=== PATIENT | male | born 1970 | race Caucasian/White ===

== ENCOUNTER 2020-04-23 07:18 | Inpatient (IN) | payer MEDICAID ==
[~2020-04-23] VITALS: Ht 170.2 cm; Wt 63.0 kg
--- NOTE | 2020-04-23 07:20 | NUR ---
PT ALEXANDRA FROM [facility] TO ER BED 07 C/O RLE BLEEDING FISTULA SINCE HIS LAST DIALYSIS 2 DAYS AGO. C/O GENERALIZED WEAKNESS AND BODYACHES. HYPOTENSIVE SPORTS UMPIRE. PLACED ON MONITOR. AWAITING MD PACE.
--- NOTE | 2020-04-23 07:28 | NUR ---
DR ZARAGOZA AT BEDSIDE FOR EVAL.
[2020-04-23] MEDS ORDERED: GELATIN SPONGE,ABSORBABLE 1 SPONGE SPONGE TP ONE (07:37)
[2020-04-23 08:13] LABS: BASOPHILS # (AUTO) 0.1 /CMM (0.0-0.2); HEMATOCRIT 29 % (39-51); HEMOGLOBIN 9.4 g/dL (13.5-17.5); LYMPHOCYTES # (AUTO) 1.7 /CMM (0.8-4.8); MEAN CORPUSCULAR HGB CONC 33 g/dl (31.0-36.0); MEAN CORPUSCULAR VOLUME 90 fL (80-96); MONOCYTES # (AUTO) 0.6 /CMM (0.1-1.30); MONOCYTES % (AUTO) 7.5 % (2.0-12.0); NEUTROPHILS # (AUTO) 5.5 /CMM (1.8-8.9); NEUTROPHILS % (AUTO) 67.5 % (43.0-81.0); PLATELET COUNT (AUTO) 175 /CMM (150-450); RED BLOOD CELL COUNT(AUTO) 3.19 MIL/uL (4.5-6.0); WHITE BLOOD COUNT (AUTO) 8.2 K/uL (4.3-11.0)
[2020-04-23 08:24] LABS: ALBUMIN 2.4 g/dL (3.4-5.0); BILIRUBIN,DIRECT 0.2 mg/dL (0.0-0.2); BILIRUBIN,TOTAL 0.6 mg/dL (0.2-1.0); CALCIUM, SERUM 11.3 mg/dL (8.5-10.1); POTASSIUM 4.9 mmol/L (3.5-5.1); TOTAL PROTEIN, SERUM 6.1 g/dL (6.4-8.2)
--- NOTE | 2020-04-23 08:25 | NUR ---
DR ZARAGOZA MADE AWARE OF LATEST B/P. ORDERS RECIEVED WILL CARRY OUT.
[2020-04-23 08:26] LABS: CREATININE 9.4 mg/dL (0.6-1.3)
[2020-04-23] MEDS ORDERED: IV NS 0.9% 250 ML BAG IV ONE (08:30)
[2020-04-23] MEDS ORDERED: IPRA3AMP23 IH (08:47)
[2020-04-23] MEDS ORDERED: AMIN30LI2 PO (08:47)
[2020-04-23] MEDS ORDERED: ACET325T53 PO (08:47)
[2020-04-23] MEDS ORDERED: BISA10SU11 RC (08:47)
[2020-04-23] MEDS ORDERED: APIX5TAB4 PO (08:47)
[2020-04-23] MEDS ORDERED: SIME80TA15 PO (08:47)
[2020-04-23] MEDS ORDERED: DRON10CA8 PO (08:47)
[2020-04-23] MEDS ORDERED: ASCO250T23 PO (08:47)
[2020-04-23] MEDS ORDERED: LACT10SO68 PO (08:47)
[2020-04-23] MEDS ORDERED: ZINC1CAP3 PO (08:47)
[2020-04-23] MEDS ORDERED: THIA100T88 PO (08:47)
[2020-04-23] MEDS ORDERED: DRON2.5C18 PO (08:47)
[2020-04-23] MEDS ORDERED: VIT1TABL46 PO (08:47)
[2020-04-23] MEDS ORDERED: FOLI0.8T PO (08:47)
[2020-04-23] MEDS ORDERED: DOCU-141 PO (08:47)
[2020-04-23] MEDS ORDERED: FOLI0.8C2 PO (08:47)
[2020-04-23] MEDS ORDERED: ONDA4TAB5 PO (08:47)
--- NOTE | 2020-04-23 08:47 | NUR ---
MED RECON DONE, PT CAME FROM [facility] [id number] [place] [address] , [place] [address] PHONE , PCP ADOLFO FLETCHER [phone]
--- NOTE | 2020-04-23 09:17 | NUR ---
PANEL PAGED. AWAITING DR HALE'S CALL BACK.
--- NOTE | 2020-04-23 09:48 | NUR ---
[facility] CALLED. RICHARD BUENO.
[2020-04-23] MEDS ORDERED: SIMETHICONE 80 MG TAB.CHEW PO PRN (10:30)
[2020-04-23] MEDS ORDERED: ACETAMINOPHEN 325 MG TABLET PO PRN ×2 (10:30)
[2020-04-23] MEDS ORDERED: MAG HYDROX/AL HYDROX/SIMETH 30 ML UDC PO PRN (10:30)
[2020-04-23] MEDS ORDERED: ZOLPIDEM TARTRATE 5 MG TABLET PO PRN (10:30)
[2020-04-23] MEDS ORDERED: Z GUARD REMEDY 2 OZ OINT TP PRN (10:30)
[2020-04-23] MEDS ORDERED: Medication Not On Formulary EA (Ondansetron Hcl (Zofran) 4 MG) PO PRN (10:30)
[2020-04-23] MEDS ORDERED: MAGNESIUM HYDROXIDE 30 ML UDC PO PRN (10:30)
[2020-04-23] MEDS ORDERED: BISACODYL SUPP (10 MG) 10 MG/SUPP.RECT SUPP.RECT RC PRN (10:30)
[2020-04-23] MEDS ORDERED: ONDANSETRON HCL/PF 4 MG/2 ML VIAL IVP PRN (10:30)
--- NOTE | 2020-04-23 10:36 | NUR ---
REPORT GIVEN TO ANDREI COOK. AWAITING TRANSFER TO FLOOR.
[2020-04-23] MEDS ORDERED: LACTULOSE 10 G/15 ML UDC (PYXIS) PO PRN (11:30)
--- NOTE | 2020-04-23 11:30 | NUR ---
PROOF CLERK NOTES RECEIVED PT FROM E.R. STAFF [facility]IA [facility], ASSISTED TO BED, MADE COMFORTABLE, PT IS ALERT AND ORIENTED, WITH COMPLAINT OF BACK PAIN, RESPIRATIONS NORMAL AND UNLABORED, NO BLEEDING NOTED AT THE RIGHT THIGH DIALYSIS ACCESS SITE, DRESSING DRY AND INTACT, ROOM SET UP ORIENTATION PROVIDED TO PT, VERBALIZED UNDERSTANDING, VITALS SIGNS STABLE, PT SKIN IS INTACT, PT REFUSED BUTTOCK/SACRAL AREA TO BE CHECKED, ADMITTING ORDERS RECEIVED FROM MD, WILL CONTINUE TO MONITOR.
[2020-04-23] MEDS ORDERED: IPRATROPIUM NEB FS 0.5 MG/2.5 ML AMPUL.NEB NEB PRN (12:00)
[2020-04-23] MEDS ORDERED: ALBUTEROL FS 2.5 MG/0.5 ML VIAL.NEB NEB PRN (12:00)
[2020-04-23] MEDS: DOCUSATE SODIUM 100 MG CAPSULE PO SCH (16:53)
[2020-04-23] MEDS: PROSTAT (PYXIS) 30 ML UDC PO SCH (17:00)
[2020-04-23] MEDS: APIXABAN 5 MG TABLET PO SCH (17:00)
--- NOTE | 2020-04-23 17:00 | NUR ---
RN MS NOTES PROSTAT NOT GIVEN, WILL CLARIFY ORDER WITH .
--- NOTE | 2020-04-23 18:34 | NUR ---
MS RN Closing Notes Patient is A/O x 4 with vitals WNL. Patient is in bed with no signs of distress and no shortness of breath room air. IV RAC is patent and intact saline lock. R Leg AV fistula dressing and dry with no signs of bleeding in the area. He is non ambulatory. Bed is in low settings with side rails up for safety call light is within reach. Will endorse the plan of care to the shift commander nurse.
--- NOTE | 2020-04-23 19:00 | NUR ---
RN MS NOTES PT'S IV CATH ACCIDENTALLY OUT PER PT, OFFERED TO START NEW IV LINE, PT REFUSED AT THIS TIME, DRESSING TO RIGHT THIGH HD SHUNT CHANGED PER PT REQUEST, PT GAVE CONSENT FOR HEMODIALYSIS.
[2020-04-23 19:30] VITALS: BP 113/63
--- NOTE | 2020-04-23 19:49 | NUR ---
MS RN NOTES PATIENT IN BED, AWAKE, ALERT AND ORIENTED X 4. BREATHING EVEN AND UNLABORED ON ROOM AIR. PT REFUSING NURSING CARE AND DOES NOT WANT TO BE BOTHERED. PT REFUSING IV LINE. WILL UPDATE MD. SAFETY PRECAUTIONS IN PLACE. BED IN LOWEST POSITION, LOCKED, AND CALL LIGHT KEPT WITHIN REACH. WILL CONTINUE TO MONITOR.
[2020-04-23 20:00] VITALS: BP 113/63
--- NOTE | 2020-04-23 20:18 | NUR ---
MS RN NOTES MD MADE AWARE PT IS REFUSING IV INSERTION. WILL CONTINUE TO MONITOR.
--- NOTE | 2020-04-23 21:30 | NUR ---
MS RN NOTES PATIENT REFUSING TO WORK WITH FEMALE GRAIN BROKER. EDUCATED PT THAT THE BED ALARM NEEDS TO CONTINUE TO BE ON BECAUSE HE IS AT RISK OF FALLING. INSISTING ON SITTING ON A CHAIR OR AT THE EDGE OF THE BED.
[2020-04-24] VITALS (9 sets, daily range): BP systolic 100–125; BP diastolic 59–78
--- NOTE | 2020-04-24 05:51 | NUR ---
MS RN NOTES PT REFUSED LAB BLOOD DRAW.
--- NOTE | 2020-04-24 06:45 | NUR ---
MS RN NOTES DIALYSIS STARTED AT 0645. WILL CONTINUE TO MONITOR.
--- NOTE | 2020-04-24 06:46 | NUR ---
MS RN NOTES PATIENT IN BED, AWAKE, ALERT AND ORIENTED X 4. BREATHING EVEN AND UNLABORED ON ROOM AIR. PT REFUSING IV LINE. MD AWARE. SAFETY PRECAUTIONS IN PLACE. BED IN LOWEST POSITION, LOCKED, AND CALL LIGHT KEPT WITHIN REACH. WILL ENDORSE TO ONCOMING NURSE.
--- NOTE | 2020-04-24 06:58 | NUR ---
MS RN NOTES PATIENT REQUEST PAIN MEDS. GIVEN [place] AT 0658. WILL ENDORSE TO ONCOMING NURSE
[2020-04-24] MEDS: HYDROCODONE/APAP 5/325MG 1 EACH TABLET PO PRN ×3 (07:00→21:39)
[2020-04-24] MEDS: APIXABAN 5 MG TABLET PO SCH ×2 (09:00→17:00)
[2020-04-24] MEDS ORDERED: DRONABINOL (2.5 MG) 2.5 MG CAPSULE PO PRN (09:00)
[2020-04-24] MEDS ORDERED: DRONABINOL 10 MG CAPSULE PO SCH (09:00)
[2020-04-24 09:02] LABS: BASOPHILS # (AUTO) 0.1 /CMM (0.0-0.2); BASOPHILS % (AUTO) 0.7 % (0.0-2.0); EOSINOPHILS % (AUTO) 1.4 % (0.0-6.0); HEMATOCRIT 21 % (39-51); LYMPHOCYTES # (AUTO) 1.4 /CMM (0.8-4.8); LYMPHOCYTES % (AUTO) 17.3 % (20.0-44.0); MEAN CORPUSCULAR HGB CONC 33 g/dl (31.0-36.0); MEAN CORPUSCULAR VOLUME 89 fL (80-96); MONOCYTES # (AUTO) 0.6 /CMM (0.1-1.30); MONOCYTES % (AUTO) 7.4 % (2.0-12.0); NEUTROPHILS # (AUTO) 6.1 /CMM (1.8-8.9); NEUTROPHILS % (AUTO) 73.2 % (43.0-81.0); PLATELET COUNT (AUTO) 189 /CMM (150-450); WHITE BLOOD COUNT (AUTO) 8.3 K/uL (4.3-11.0)
[2020-04-24 09:11] LABS: HEMOGLOBIN 6.9 g/dL (13.5-17.5)
[2020-04-24 09:20] LABS: MAGNESIUM 2.5 mg/dL (1.8-2.4); PHOSPHORUS 4.3 mg/dL (2.5-4.9)
[2020-04-24 09:37] LABS: EOSINOPHILS % (MANUAL) 3 % (0-4); LYMPHOCYTES % (MANUAL) 11 % (16-48); MONOCYTES % (MANUAL) 4 % (0-11.0); NEUTROPHILS % (MANUAL) 82 (42-76)
[2020-04-24] MEDS: DOCUSATE SODIUM 100 MG CAPSULE PO SCH ×2 (09:41→17:04)
[2020-04-24] MEDS: ZINC SULFATE 220 MG CAPSULE PO SCH (09:42)
[2020-04-24] MEDS: THIAMINE HCL 100 MG TABLET PO SCH (09:42)
[2020-04-24] MEDS: ASCORBIC ACID 500 MG TABLET PO SCH (09:42)
[2020-04-24] MEDS: FOLIC ACID 1 MG TABLET PO SCH (09:42)
[2020-04-24] MEDS: PROSTAT (PYXIS) 30 ML UDC PO SCH ×2 (09:43→17:07)
[2020-04-24] MEDS: VIT B CMPLX 3/FA/VIT C/BIOTIN 1 TAB TABLET PO SCH (09:45)
[2020-04-24] MEDS ORDERED: CELLULOSE,OXIDIZED 1 EA PACK MC ONE (10:30)
[2020-04-24] MEDS: DRONABINOL (2.5 MG) 2.5 MG CAPSULE PO SCH (10:35)
[2020-04-24] MEDS ORDERED: GELATIN SPONGE,ABSORBABLE 1 SPONGE SPONGE TP ONE (10:53)
--- NOTE | 2020-04-24 11:00 | NUR ---
MS RN NOTES AFTER HD PATIENT WAS NOTED WITH EXCESSIVE BLEEDING OF THE AV SHUNT, PRESSURE DRESSING WAS APPLIED. PATIENT AGGRESSIVE, REMOVING THE DRESSING, TRYING TO REMOVE PRESSURE DRESSING. IV ACCESS STARTED ON RIGHT HAND G22. PATIENT TROWING THINGS AT NURSING STAFF. PATIENT THREATENING NURSING STAFF. SECURITY CALLED. DR. BUENO MADE AWARE. STATES HE WILL CONTACT DR. BESS FOR EMERGENCY SURGERY. CALL RECEIVED FROM DR. BESS REPORTED PATIENTS SITUATION. ORDERS TO PREPARE PATIENT FOR EMERGENCY SURGERY. ORDERS NOTED AND CARRIED OUT. DR. BESS WILL CONTACT SURGERY.
[2020-04-24] MEDS ORDERED: FENTANYL PF 100MCG/2ML AMPUL ONE ×2 (11:08→12:41)
[2020-04-24] MEDS ORDERED: MIDAZOLAM HCL 2 MG/2ML VIAL ONE (11:09)
[2020-04-24] MEDS ORDERED: LIDOCAINE HCL/PF 1% 30 ML SDV ONE (11:17)
[2020-04-24] MEDS ORDERED: GELATIN SPONGE,ABSORBABLE 1 EA SPONGE TP ONE (11:17)
[2020-04-24] MEDS ORDERED: THROMBIN (BOVINE) 5,000 UNITS VIAL TP ONE (11:17)
[2020-04-24] MEDS ORDERED: BACITRACIN 50000 UNITS/VIAL ONE (11:17)
--- NOTE | 2020-04-24 11:20 | NUR ---
MS RN NOTES PATIENT TRANSFERRED TO OR FOR EMERGENCY POSSIBLE REVISION OR LIGATION OR POSSIBLE HD CATH PLACEMENT. PATIENT AGREED FOR SURGERY. PATIENT ESCORTED TO OR FOR SURGERY.
[2020-04-24] MEDS ORDERED: ALBUMIN 5% 250 ML IV ONE (11:22)
[2020-04-24] MEDS ORDERED: LIDOCAINE HCL/MPF 1% 30 ML VIAL IJ ONE ×2 (11:46→13:52)
[2020-04-24] MEDS ORDERED: LIDOCAINE 1% INJ 50 ML MDV IJ ONE (11:51)
[2020-04-24] MEDS ORDERED: CLINDAMYCIN 900 MG/6 ML VIAL ONE (11:56)
[2020-04-24] MEDS ORDERED: HEPARIN SODIUM, PORCINE 1,000 UNIT/ML VIAL ONE (13:07)
[2020-04-24] MEDS ORDERED: FEE PK DOSING 1 MIN EA MC ONE (14:32)
[2020-04-24] MEDS ORDERED: VANCOMYCIN 1 GM in IV D5W 250 ML IV ONE (15:00)
--- NOTE | 2020-04-24 15:31 | NUR ---
MS RN NOTES PATIENT RETURNED FROM OR. ALERT, ORIENTED X3. PATIENT TRANSFUSING PRBC. TOLERATING WELL, NO REACTION NOTED. VS WNL . BLOOD TRANSFUSION CONNECTED TO NEW HD CATH. OLD AV SHUNT WAS REMOVED AND WAS PACKED BY MD. WITH PERIPHERAL IV ON RIGHT HAND G22. WILL CONTINUE TO MONITOR PATIENT POST OP.
--- NOTE | 2020-04-24 16:00 | NUR ---
MS RN NOTES PATIENTS BLOOD TRANSFUSION COMPLETED. TOLERATED WELL WILL CONTINUE TO MONITOR.
[2020-04-24] MEDS ORDERED: HEPARIN SODIUM, PORCINE 1000 UNIT/1 ML VIAL IV ONE (17:00)
--- NOTE | 2020-04-24 19:00 | NUR ---
JOYCE NOTES COMPLAINED OF BACK PAIN- NORCO 5/325MG PO GIVEN ORDERED, V/S STABLE Addendum: 04/25/20 at 0237 by MADALYN SANDERS RN RIGHT TIME 2200
--- NOTE | 2020-04-24 19:27 | NUR ---
MS RN NOTES PATIENT IN BED RESTING NO SOB OR ACUTE DISTRESS NOTED. ALL DUE MEDICATIONS ADMINISTERED. ALL NEEDS MET. NO SIGNS OF BLEEDING . ENDORSED CARE TO PM SHIFT. Addendum: 04/24/20 at 1929 by CANDY ALEX RN PATIENT HD CATH WAS FLUSHED WITH HEPARIN BY HD NURSE AFTER BLOOD TRANSFUSION WAS FINISHED.
--- NOTE | 2020-04-24 19:30 | NUR ---
RN NOTES RECEIVED PT. AWAKE ON BED, A/OX3, DRESSING ON THE RIGHT UPPER THIGH DRY AND INTACT, CALL LIGHT WITHIN REACH, [id number], CONTINUE TO MONITOR
[2020-04-25] VITALS (8 sets, daily range): BP systolic 99–142; BP diastolic 57–90
[2020-04-25] MEDS: HYDROCODONE/APAP 5/325MG 1 EACH TABLET PO PRN ×4 (04:44→22:03)
--- NOTE | 2020-04-25 04:44 | NUR ---
RN NOTES COMPLAINED OF BACK PAIN- NORCO 5/325 MG PPO GIVEN ORDERED, V/S STABLE
[2020-04-25] MEDS ORDERED: VANCOMYCIN 500 MG in IV D5W 100 ML IV PRN (06:00)
--- NOTE | 2020-04-25 06:35 | NUR ---
RN NOTES SLEEPING BUT AROUSABLE, NO PAIN NOTED, NOT IN DISTRESS, MORNING CARE RENDERED, CALL LIGHT WITHIN REACH, [id number], PT. NEEDS ATTENDED
[2020-04-25 08:07] LABS: BASOPHILS # (AUTO) 0.1 /CMM (0.0-0.2); BASOPHILS % (AUTO) 0.9 % (0.0-2.0); EOSINOPHILS % (AUTO) 3.9 % (0.0-6.0); LYMPHOCYTES # (AUTO) 1.4 /CMM (0.8-4.8); LYMPHOCYTES % (AUTO) 21.7 % (20.0-44.0); MEAN CORPUSCULAR HGB CONC 33 g/dl (31.0-36.0); MEAN CORPUSCULAR VOLUME 88 fL (80-96); MONOCYTES # (AUTO) 0.5 /CMM (0.1-1.30); MONOCYTES % (AUTO) 7.1 % (2.0-12.0); NEUTROPHILS # (AUTO) 4.4 /CMM (1.8-8.9); NEUTROPHILS % (AUTO) 66.4 % (43.0-81.0); PLATELET COUNT (AUTO) 160 /CMM (150-450); WHITE BLOOD COUNT (AUTO) 6.6 K/uL (4.3-11.0)
[2020-04-25 08:16] LABS: RED BLOOD CELL COUNT(AUTO) 1.92 MIL/uL (4.5-6.0)
[2020-04-25 08:18] LABS: HEMATOCRIT 17 % (39-51); HEMOGLOBIN 5.6 g/dL (13.5-17.5)
[2020-04-25 08:28] LABS: CALCIUM, SERUM 10.3 mg/dL (8.5-10.1); POTASSIUM 4.8 mmol/L (3.5-5.1)
[2020-04-25 08:34] LABS: CREATININE 7.7 mg/dL (0.6-1.3)
--- NOTE | 2020-04-25 08:38 | NUR ---
MS RN NOTES CALL RECEIVED FROM LAB REPORTING CRITICAL H/H OF 5.6. DR. BUENO MADE AWARE ORDERS TO GIVE 3 UNITS OF PRBC. ORDERS NOTED AND CARRIED OUT.
[2020-04-25] MEDS: THIAMINE HCL 100 MG TABLET PO SCH (08:45)
[2020-04-25] MEDS: ZINC SULFATE 220 MG CAPSULE PO SCH (08:45)
[2020-04-25] MEDS: VIT B CMPLX 3/FA/VIT C/BIOTIN 1 TAB TABLET PO SCH (08:45)
[2020-04-25] MEDS: FOLIC ACID 1 MG TABLET PO SCH (08:46)
[2020-04-25] MEDS: DRONABINOL (2.5 MG) 2.5 MG CAPSULE PO SCH (08:46)
[2020-04-25] MEDS: ASCORBIC ACID 500 MG TABLET PO SCH (08:47)
[2020-04-25] MEDS: DOCUSATE SODIUM 100 MG CAPSULE PO SCH ×2 (08:47→17:27)
[2020-04-25] MEDS: PROSTAT (PYXIS) 30 ML UDC PO SCH ×2 (08:48→17:28)
[2020-04-25 08:59] LABS: EOSINOPHILS % (MANUAL) 3 % (0-4); LYMPHOCYTES % (MANUAL) 21 % (16-48); MONOCYTES % (MANUAL) 8 % (0-11.0); NEUTROPHILS % (MANUAL) 68 (42-76)
--- NOTE | 2020-04-25 14:20 | NUR ---
MS RN NOTES PATIENTS BLOOD TRANSFUSION COMPLETED. TOLERATED WELL NO A/R NOTED WILL CONTINUE TO MONITOR.
--- NOTE | 2020-04-25 17:55 | NUR ---
MS RN NOTES PATIENT COMPLETED HD FOR 1 HOUR 2 UNITS OF PRBS GIVEN WITH HD. TOLERATED WELL. NO REACTION NOTED. WILL CONTINUE TO MONITOR.
--- NOTE | 2020-04-25 19:34 | NUR ---
MS RN NOTES PATIENT IN BED RESTING NO SOB OR ACUTE DISTRESS NOTED. ALL DUE MEDICATIONS ADMINISTERED. ALL NEEDS MET. NO ACUTE CHANGES NOTED DURING AM SHIFT. ENDORSED CARE TO PM SHIFT.
--- NOTE | 2020-04-25 20:00 | NUR ---
RN NOTES RECEIVED PT. AWAKE ON BED, A/OX3, NON-COMPLIANT, DRESSING ON THE RIGHT THIGH DRY AND INTACT, NOTICED SMALL AMOUNT OF BLOOD AROUND THE HD CATH ON THE LEFT GROIN, PT JUST HAD DIALYSIS TODAY AND HD NURSE CHANGE THE DRESSING, NO PAIN NOTED, NO SOB, CALL LIGHT WOITHIN REACH, [id number] CONTINUE TO MONITOR
--- NOTE | 2020-04-25 20:15 | NUR ---
RN NOTES CALLED THE PHARMACY AND CLARIFY REGARDING THE VANCO ORDER, SPOKE TO JADA AND INFORMED HER THAT PT. RECEIVED THE VANCO IN THE MORNING , AND PT HD WAS FINISHED ALMOST 1800, JADA TOLD ME NOT TO GIVE IT SINCE PT. ALREADY RECEIVED IT
--- NOTE | 2020-04-25 22:03 | NUR ---
RN NOTES COMPLAINED OF BACK PAIN- NORCO 5/325 MGP O GIVEN ORDERED, V/S STABLE
--- NOTE | 2020-04-25 23:30 | NUR ---
RN NOTES PT. OPENED THE DRESSING ON HIS RIGHT THIGH AND PULLED OUT THE GAUZE, WOUND WAS PACKED WITH GAUZE SOAKED WITH BETADINE... CHANGE THE DRESSING AND EDUCATE THE PATIENT THAT HE'S NOT SUPPOSED TO TOUCH IT BECAUSE IT MIGHT GET INFECTED
[2020-04-26] MEDS: HYDROCODONE/APAP 5/325MG 1 EACH TABLET PO PRN ×3 (02:50→12:21)
--- NOTE | 2020-04-26 02:50 | NUR ---
RN NOTES COMPLAINED OF BACK PAIN- NORCO 5/325 MG PO GIVEN ORDERED, V/S STABLE
--- NOTE | 2020-04-26 04:30 | NUR ---
RN NOTES PT. PICKED HIS HD CATH DRESSING, DRESSING CHANGE AND EDUCATE THE PATIENT NOT TO TOUCH IT
--- NOTE | 2020-04-26 06:45 | NUR ---
RN NOTES AWAKE, ON DIALYSIS, NOT IN DISTRESS, MORNING CARE RENDERED, PT. NEEDS ATTENDED
[2020-04-26 07:14] LABS: BASOPHILS # (AUTO) 0.1 /CMM (0.0-0.2); BASOPHILS % (AUTO) 0.9 % (0.0-2.0); EOSINOPHILS % (AUTO) 5.2 % (0.0-6.0); HEMATOCRIT 28 % (39-51); HEMOGLOBIN 9.4 g/dL (13.5-17.5); LYMPHOCYTES # (AUTO) 1.7 /CMM (0.8-4.8); LYMPHOCYTES % (AUTO) 21.5 % (20.0-44.0); MEAN CORPUSCULAR HGB CONC 34 g/dl (31.0-36.0); MEAN CORPUSCULAR VOLUME 88 fL (80-96); MONOCYTES # (AUTO) 0.6 /CMM (0.1-1.30); MONOCYTES % (AUTO) 7.9 % (2.0-12.0); NEUTROPHILS # (AUTO) 5.1 /CMM (1.8-8.9); NEUTROPHILS % (AUTO) 64.5 % (43.0-81.0); PLATELET COUNT (AUTO) 156 /CMM (150-450); RED BLOOD CELL COUNT(AUTO) 3.16 MIL/uL (4.5-6.0); WHITE BLOOD COUNT (AUTO) 7.9 K/uL (4.3-11.0)
[2020-04-26 07:42] LABS: CALCIUM, SERUM 10.5 mg/dL (8.5-10.1); CREATININE 6.1 mg/dL (0.6-1.3); POTASSIUM 4.5 mmol/L (3.5-5.1)
--- NOTE | 2020-04-26 08:01 | NUR ---
MS RN OPENING NOTES RECEIVED PATIENT IN BED, ASLEEP, HAVING DIALYSIS AT THIS MOMENT. PATIENT IS ON ROOM AIR; BREATHING IS EVEN AND UNLABORED AT THIS TIME; HD CATH L GROIN. NO SIGNS OF PAIN SUCH MOANING, FACIAL GRIMACING OR GUARDING. KODY MIDLINE G # [address] ALL SAFETY PRECAUTIONS IN PLACE; BED IN LOW POSITION AND LOCKED, RAILS UP X2, CALL LIGHT WITHIN REACH. WILL CONTINUE TO MONITOR PATIENT.
--- NOTE | 2020-04-26 08:21 | NUR ---
NORCO ADMINISTRATION PATIENT COMPLAINING OF PAIN AND REQUESTING PAIN MEDICATION. PRN NORCO ADMINISTERED.
[2020-04-26 08:31] VITALS: BP 124/82
[2020-04-26] MEDS: DRONABINOL (2.5 MG) 2.5 MG CAPSULE PO SCH (09:00)
[2020-04-26] MEDS: PROSTAT (PYXIS) 30 ML UDC PO SCH ×2 (09:00→16:19)
[2020-04-26] MEDS: ZINC SULFATE 220 MG CAPSULE PO SCH (09:00)
[2020-04-26] MEDS: ASCORBIC ACID 500 MG TABLET PO SCH (09:00)
[2020-04-26] MEDS: DOCUSATE SODIUM 100 MG CAPSULE PO SCH ×2 (09:00→16:19)
[2020-04-26] MEDS: FOLIC ACID 1 MG TABLET PO SCH (09:00)
--- NOTE | 2020-04-26 09:08 | NUR ---
WOUND CARE CONSULT: PT REFUSED TO HAVE PACKING REMOVED FROM RT THIGH WOUNDS. PT ALLOWED REMOVAL OF OUTER WRAP AND REINFORCEMENT OF DRESSINGS. GAUZE AND ABD PAD PLACED OVER PACKED WOUND SITES AND WRAPPED WITH KERLIX AND BURN NET. PT TOLERATED WELL. DISCUSSED WITH NURSING STAFF. WILL SEE PRN.
--- NOTE | 2020-04-26 09:41 | NUR ---
MS RN NOTES PATIENT REFUSED SOME MEDS AND MEDICATIONS HE IS OK TAKING HE WANTS THEM LATER TODAY AND NOT RIGHT NOW. HE IS CRANKY AND ARROGANT. WILL FOLLOW UP.
--- NOTE | 2020-04-26 10:00 | NUR ---
MS RN NOTES PATIENT DONE WITH DIALYSIS. DIALYSIS NURSE REPORTED AN OUTPUT OF 1900 MLS. B/P: 131/93 HR: 96 WILL CONTINUE TO MONITOR PATIENT.
[2020-04-26] MEDS: THIAMINE HCL 100 MG TABLET PO SCH (12:44)
[2020-04-26] MEDS: VIT B CMPLX 3/FA/VIT C/BIOTIN 1 TAB TABLET PO SCH (12:44)
--- NOTE | 2020-04-26 13:03 | NUR ---
MS RN NOTES PATIENT AGREED TO TAKE SOME OF HIS MORNING 0900 MEDS. MEDICATIONS WERE EXPLAINED AND TEACHING PROVIDED. PATIENT OK WITH MEDS. WHEN MEDS WERE IN THE MEDICATION CUP HE STARTED TO ASK MORE QUESTIONS AND REFUSED [place]. CAPSULES DISPOSED INTO MEDICATION WASTE CONTAINER.
[2020-04-26 16:00] VITALS: BP 131/76
--- NOTE | 2020-04-26 16:15 | NUR ---
MS RN NOTES PREPARING ALL DISCHARGE PAPERWORK. PATIENT REFUSES PHOTOS TO BE TAKEN OF HIS RIGHT THIGH AND ANY OTHER LOCATION. CHARGE NURSE NOTIFIED. FACILITY IS AWARE OF PATIENT COMING TODAY.
--- NOTE | 2020-04-26 17:13 | NUR ---
MS REFRIGERATION MECHANIC NOTES PATIENT DISCHARGED TO BOARD AND CARE IN MEDICALLY STABLE CONDITION. VITAL SIGNS WITHIN NORMAL LIMITS. ALL PAPERWORK READY AND SIGNED BY PATIENT. DISCHARGE INSTRUCTIONS AND TEACHING PROVIDED; PATIENT VERBALIZED UNDERSTANDING. WOUND CARE INSTRUCTIONS SENT IN THE FOLDER WITH PATIENT WELL. PICTURES UNABLE TO TAKE DUE TO PATIENT REFUSAL. VALUABLES ACCOUNTED FOR AND VALUABLE FORM SIGNED. PRIOR TO LEAVING THE FLOOR IV ACCESS REMOVED. PATIENT LEFT THE FLOOR VIA GURNEY ACCOMPANIED BY 2 sample tester AT 1710.
== END 2020-04-26 17:25 | DRG 181 ==
LOC: ER 07:23 → TELE 10:42 → MED 15:42
PROVIDERS: ADMIT Family Medicine; ATTEND Family Medicine
PROC: 04BK0ZZ Excision of Right Femoral Artery, Open Approach (ICD-10-PCS; principal; 2020-04-24)
PROC: B51CYZA Fluoroscopy of Left Lower Extremity Veins using Other Contrast, Guidance (ICD-10-PCS; principal; 2020-04-24)
PROC: 30233N1 Transfusion of Nonautologous Red Blood Cells into Peripheral Vein, Percutaneous Approach (ICD-10-PCS; principal; 2020-04-24)
PROC: 047K0ZZ Dilation of Right Femoral Artery, Open Approach (ICD-10-PCS; principal; 2020-04-24)
PROC: 0JH Subcutaneous Tissue and Fascia, Insertion (ICD-10-PCS; principal; 2020-04-24)
PROC: 06LM0ZZ Occlusion of Right Femoral Vein, Open Approach (ICD-10-PCS; principal; 2020-04-24)
PROC: 06HN33Z Insertion of Infusion Device into Left Femoral Vein, Percutaneous Approach (ICD-10-PCS; principal; 2020-04-24)
PROC: 05HY33Z Insertion of Infusion Device into Upper Vein, Percutaneous Approach (ICD-10-PCS; principal; 2020-04-24)
DX: T82.838A Hemorrhage due to vascular prosthetic devices, implants and grafts, initial encounter (principal); E43 Unspecified severe protein-calorie malnutrition; E11.22 Type 2 diabetes mellitus with diabetic chronic kidney disease; E11.649 Type 2 diabetes mellitus with hypoglycemia without coma; N25.81 Secondary hyperparathyroidism of renal origin; M41.9 Scoliosis, unspecified; I12.0 Hypertensive chronic kidney disease with stage 5 chronic kidney disease or end stage renal disease; Y84.1 Kidney dialysis as the cause of abnormal reaction of the patient, or of later complication, without mention of misadventure at the time of the procedure; Y92.009 Unspecified place in unspecified non-institutional (private) residence as the place of occurrence of the external cause; N18.6 End stage renal disease; G89.4 Chronic pain syndrome; Z99.2 Dependence on renal dialysis; D63.8 Anemia in other chronic diseases classified elsewhere; Z88.0 Allergy status to penicillin; Z79.51 Long term (current) use of inhaled steroids; Z94.0 Kidney transplant status
CPT/HCPCS: 36415; 71045-TC; 72100-TC; 80048-TC; 80061-TC; 80076-TC; 80202-TC; 82962-TC; 83735-TC; 84100-TC; 85025-TC; 85730-TC; 86706; 86850-TC; 86921-TC; 87070-TC; 87081-TC; 87340; 88304-TC; 88311-TC; 90935-TC; A6253; A6403; C1750; C1769; G0378; J1644; J2250; J2405; J2704; J2765; J3010; J3370; J3490; J7040; J7050; J7060; P9016-BL; P9045; Q0167; U0003-CS

== ENCOUNTER 2020-05-04 16:03 | Inpatient (IN) | payer MEDICAID ==
[~2020-05-04] VITALS: Ht 170.2 cm; Wt 55.8 kg
[~2020-05-04 16:03] MED LIST: ACET325T53 PO; AMIN30LI2 PO; APIX5TAB4 PO; ASCO250T23 PO; BISA10SU11 RC; DOCU-141 PO; DRON10CA8 PO; DRON2.5C18 PO; FOLI0.8C2 PO; FOLI0.8T PO; IPRA3AMP23 IH; LACT10SO68 PO; ONDA4TAB5 PO; SIME80TA15 PO; THIA100T88 PO; VIT1TABL46 PO; ZINC1CAP3 PO
--- NOTE | 2020-05-04 16:05 | NUR ---
Pt sent from [facility] for dialysis access malfunction. Pt is aaxo4, not in respiratory distress, hooked to cardiac care unit nurse, v/s stable, kept rested and comfortable, will continue to monitor.
--- NOTE | 2020-05-04 16:15 | NUR ---
seen and examined by .
--- NOTE | 2020-05-04 16:22 | NUR ---
CALLED FOR MS BED.
--- NOTE | 2020-05-04 16:23 | NUR ---
MOVE SHEET SUBMITTED TO ADMITTING.
--- NOTE | 2020-05-04 16:30 | NUR ---
iv line established blood drawn and sent to lab.
[2020-05-04 16:37] LABS: BASOPHILS # (AUTO) 0.1 /CMM (0.0-0.2); BASOPHILS % (AUTO) 0.6 % (0.0-2.0); EOSINOPHILS % (AUTO) 1.6 % (0.0-6.0); HEMATOCRIT 36 % (39-51); HEMOGLOBIN 11.3 g/dL (13.5-17.5); LYMPHOCYTES # (AUTO) 1.2 /CMM (0.8-4.8); LYMPHOCYTES % (AUTO) 8.2 % (20.0-44.0); MEAN CORPUSCULAR HGB CONC 31 g/dl (31.0-36.0); MEAN CORPUSCULAR VOLUME 94 fL (80-96); MONOCYTES # (AUTO) 0.6 /CMM (0.1-1.30); MONOCYTES % (AUTO) 4.2 % (2.0-12.0); NEUTROPHILS # (AUTO) 12.8 /CMM (1.8-8.9); NEUTROPHILS % (AUTO) 85.4 % (43.0-81.0); PLATELET COUNT (AUTO) 321 /CMM (150-450); RED BLOOD CELL COUNT(AUTO) 3.84 MIL/uL (4.5-6.0)
[2020-05-04 16:48] LABS: CALCIUM, SERUM 11.3 mg/dL (8.5-10.1); CREATININE 5.3 mg/dL (0.6-1.3); POTASSIUM 4.3 mmol/L (3.5-5.1)
[2020-05-04 16:53] LABS: ALBUMIN 3.1 g/dL (3.4-5.0); BILIRUBIN,DIRECT 0.1 mg/dL (0.0-0.2); BILIRUBIN,TOTAL 0.4 mg/dL (0.2-1.0); TOTAL PROTEIN, SERUM 7.9 g/dL (6.4-8.2)
--- NOTE | 2020-05-04 17:08 | NUR ---
REPORT GIVEN TO JOYCE SIGALA FOR NADIYA.
--- NOTE | 2020-05-04 17:22 | NUR ---
CALLED OFFICE OF DR CASTELLANOS MICA MINER BLASTING, XAVIER STAFFORD
--- NOTE | 2020-05-04 18:09 | NUR ---
RN ADMITTING NOTE Patient arrived from ER, report received from Ajay COOK. Vital signs BP 113/76 HR 80 T 97.6F RR 16 O2 sat 98% on RA. IV line in the RFA #20g s/l. Skin assessed, photos taken and placed in chart. HD catheter noted in the left groin. BLE edema noted in the left and right extremity, non-pitting. Bed is in lowest position, side rails x3 in upright position, call light is within reach, fall safety and aspiration precautions enforced. Will endorse to shift boss.
[2020-05-04] MEDS ORDERED: LACTULOSE 10 G/15 ML UDC (PYXIS) PO PRN (18:30)
[2020-05-04] MEDS ORDERED: ZOLPIDEM TARTRATE 5 MG TABLET PO PRN ×2 (18:30→19:00)
[2020-05-04] MEDS ORDERED: Z GUARD REMEDY 2 OZ OINT TP PRN ×2 (18:30→19:00)
[2020-05-04] MEDS ORDERED: SIMETHICONE 80 MG TAB.CHEW PO PRN (18:30)
[2020-05-04] MEDS ORDERED: ONDANSETRON HCL/PF 4 MG/2 ML VIAL IVP PRN ×2 (18:30→19:00)
[2020-05-04] MEDS ORDERED: HYDROCODONE/APAP 5/325MG 1 EACH TABLET PO PRN ×2 (18:30→19:00)
--- NOTE | 2020-05-04 18:51 | NUR ---
RN NOTE WOUND CULTURES FROM THE PROXIMAL AND DISTAL TO THE RIGHT GROIN SEND TO LAB.
[2020-05-04] MEDS ORDERED: ACETAMINOPHEN 325 MG TABLET PO PRN (19:00)
--- NOTE | 2020-05-04 19:22 | NUR ---
MS RN OPENING NOTES PATIENT AWAKE IN BED. A/OX4. ON RA. NO S/S OF ACUTE RESPIRATORY DISTRESS; BREATHING IS EVEN AND UNLABORED. PATIENT RECEIVED NORCO 5/325 MG PO AT 1838 PER DAY SHIFT RN; PATIENT REQUESTING FOR NORCO 10/325 MG; WILLIAM MINER NOTIFIED. IV PRESENT ON LEFT FA, SIZE 20, INTACT & PATENT, HEP LOCKED. HD CATH PRESENT ON LEFT FEMORAL. SAFETY MEASURES IN PLACE AND PATIENT'S NEEDS MET. BED LOCKED, ALARM ON, SIDE RAILS X2, CALL LIGHT WITHIN REACH. WILL CONTINUE TO MONITOR.
--- NOTE | 2020-05-04 19:32 | NUR ---
RN NOTE Ok per Dr. Martins to change Golden-5 as ordered to 1-2 tabs per patient's level of pain.
[2020-05-04 20:00] VITALS: BP 105/68
[2020-05-04 22:27] VITALS: BP 124/71
[2020-05-04] MEDS: HYDROCODONE/APAP 5/325MG 1 EACH TABLET PO PRN (22:31)
[2020-05-05 02:34] VITALS: BP 120/71
[2020-05-05] MEDS: HYDROCODONE/APAP 5/325MG 1 EACH TABLET PO PRN ×4 (02:37→23:02)
--- NOTE | 2020-05-05 03:26 | NUR ---
MS RN NOTES PATIENT BECAME AGITATED AND THREW GOWN, CALL LIGHT, AND WOUND DRESSING ON RIGHT THIGH ON THE FLOOR. TRIED TO ASSIST AND CALM PATIENT DOWN, HOWEVER PATIENT CONTINUES TO BE ANGRY/AGITATED.
--- NOTE | 2020-05-05 03:40 | NUR ---
MS RN NOTES PATIENT VERBALLY ABUSIVE/AGGRESSIVE AND YELLING PROFANITY TOWARDS NURSING STAFF. "I SWEAR I'LL COME BACK HERE AND FK YOU UP; YOU STUPID ASS MOTHERFS; YOU GUYS ARE EVIL", ETC. INFORMED PATIENT THAT AGGRESSIVE BEHAVIOR IS NOT ALLOWED, TRIED TO ASSIST PATIENT AND MAKE COMFORTABLE, HOWEVER PATIENT CONTINUED YELLING PROFANITY. SECURITY CALLED TO UNIT FOR ASSISTANCE.
--- NOTE | 2020-05-05 03:44 | NUR ---
MS RN NOTES PATIENT STATED HE WANTS TO LEAVE AND SIGN AMA, HOWEVER SHORTLY AFTER ASKED FOR ASSISTANCE BACK TO BED
--- NOTE | 2020-05-05 03:50 | NUR ---
MS RN NOTES PATIENT AGREED TO LAY BACK DOWN IN BED, PROVIDED COMFORT MEASURES TO PATIENT. CONTINUES TO YELL PROFANITY, RACIAL SLURS, AND VERBAL THREATS TOWARDS NURSING STAFF.
[2020-05-05 06:35] VITALS: BP 109/70
[2020-05-05 06:47] LABS: BASOPHILS # (AUTO) 0.1 /CMM (0.0-0.2); BASOPHILS % (AUTO) 1.3 % (0.0-2.0); EOSINOPHILS % (AUTO) 2.7 % (0.0-6.0); HEMATOCRIT 27 % (39-51); HEMOGLOBIN 8.9 g/dL (13.5-17.5); LYMPHOCYTES # (AUTO) 1.3 /CMM (0.8-4.8); LYMPHOCYTES % (AUTO) 13.4 % (20.0-44.0); MEAN CORPUSCULAR HGB CONC 33 g/dl (31.0-36.0); MEAN CORPUSCULAR VOLUME 94 fL (80-96); MONOCYTES # (AUTO) 0.4 /CMM (0.1-1.30); MONOCYTES % (AUTO) 3.9 % (2.0-12.0); NEUTROPHILS # (AUTO) 7.4 /CMM (1.8-8.9); NEUTROPHILS % (AUTO) 78.7 % (43.0-81.0); PLATELET COUNT (AUTO) 251 /CMM (150-450); RED BLOOD CELL COUNT(AUTO) 2.93 MIL/uL (4.5-6.0); WHITE BLOOD COUNT (AUTO) 9.4 K/uL (4.3-11.0)
[2020-05-05 06:53] LABS: CALCIUM, SERUM 9.9 mg/dL (8.5-10.1); CREATININE 6.8 mg/dL (0.6-1.3); MAGNESIUM 2.5 mg/dL (1.8-2.4); PHOSPHORUS 6.5 mg/dL (2.5-4.9); POTASSIUM 4.6 mmol/L (3.5-5.1)
--- NOTE | 2020-05-05 07:16 | NUR ---
MS RN CLOSING NOTES PATIENT SLEEPING IN BED. A/OX4. NO S/S OF ACUTE RESPIRATORY DISTRESS; BREATHING IS EVEN AND UNLABORED. PATIENT RECEIVED NORCO 5/325 MG PO AT 0638. IV PRESENT ON LEFT FA, SIZE 20, INTACT & PATENT, HEP LOCKED. HD CATH PRESENT ON LEFT FEMORAL. SAFETY MEASURES IN PLACE AND PATIENT'S NEEDS MET. BED LOCKED, ALARM ON, SIDE RAILS X2, CALL LIGHT WITHIN REACH. WILL ENDORSE TO DAY SHIFT NURSE PLAN OF CARE.
--- NOTE | 2020-05-05 07:40 | NUR ---
MS/RN OPENING NOTES RECEIVED PATIENT SLEEPING IN BED. A/OX4. NO S/S OF ACUTE RESPIRATORY DISTRESS; BREATHING IS EVEN AND UNLABORED. IV PRESENT ON LEFT FA, SIZE 20, INTACT & PATENT, HEP LOCKED. HD CATH PRESENT ON LEFT FEMORAL. SAFETY MEASURES IN PLEASE. BED LOCKED, ALARM ON, SIDE RAILS X2, CALL LIGHT WITHIN REACH. WILL CONTINUE.
--- NOTE | 2020-05-05 08:00 | NUR ---
MS/RN NOTES PATIENT COMPLAINED OF PAIN RATED 4/10 PER PATIENT REQUEST TYLENOL 650 MG PO AND WAS GIVEN WILL CONTINUE TO MONITOR.
[2020-05-05] MEDS: APIXABAN 5 MG TABLET PO SCH ×2 (09:00→17:00)
[2020-05-05] MEDS: FOLIC ACID 1 MG TABLET PO SCH (09:00)
[2020-05-05] MEDS ORDERED: DRONABINOL (2.5 MG) 2.5 MG CAPSULE PO PRN (09:00)
[2020-05-05] MEDS: THIAMINE HCL 100 MG TABLET PO SCH (09:00)
[2020-05-05] MEDS: VIT B CMPLX 3/FA/VIT C/BIOTIN 1 TAB TABLET PO SCH (09:00)
[2020-05-05] MEDS: ZINC SULFATE 220 MG CAPSULE PO SCH (09:00)
[2020-05-05] MEDS: ASCORBIC ACID 500 MG TABLET PO SCH (09:00)
[2020-05-05] MEDS: DRONABINOL (2.5 MG) 2.5 MG CAPSULE PO SCH (09:00)
[2020-05-05] MEDS: ACETAMINOPHEN 325 MG TABLET PO PRN (09:06)
--- NOTE | 2020-05-05 09:50 | NUR ---
MS/RN NOTES PATIENT REFUSED TO TAKE THE 0900 AM MEDICATION, EXPLAINED THE RISK AND BENEFITS, PATIENT IS STILL REFUSING. WILL CONTINUE TO MONITOR.
--- NOTE | 2020-05-05 10:23 | NUR ---
MS/RN NOTES PATIENT COMPLAINED OF PAIN RATED 7/10 NORCO 5/325 MG PO 1 TAB WAS GIVEN. WILL CONTINUE TO MONITOR.
[2020-05-05] MEDS ORDERED: ALTEPLASE CATHFLO 2 MG/VIAL IV ONE (11:00)
--- NOTE | 2020-05-05 12:56 | NUR ---
MS/RN NOTES PATIENT COMPLAINED OF PAIN RATED 10/[address] ESCOTO ORDER DILAUDID 0.5 MG IV EVERY 4 HOURS AND PRN. NOTED AND CARRIED OUT.
[2020-05-05] MEDS: HYDROMORPHONE 1 MG/1 ML DISP.SYRIN IV PRN ×2 (13:32→20:09)
[2020-05-05 16:00] VITALS: BP 119/72
--- NOTE | 2020-05-05 19:35 | NUR ---
rn notes: contacted lab to notify about stat lab draw hep b
--- NOTE | 2020-05-05 19:39 | NUR ---
MS/RN CLOSING NOTES PATIENT IS ON BED. PATIENT IS ALERT AND ORIENTED X4. NO S/S OF ACUTE RESPIRATORY DISTRESS, BREATHING IS EVEN AND UNLABORED. IV ACCESS IS ON LEFT FA, # 20 G INTACT & PATENT, HEP LOCKED. HD CATH PRESENT ON LEFT FEMORAL. ALL DUE MEDICATION WAS GIVEN. SAFETY MEASURES IN PLACED. BED LOCKED, ALARM ON, SIDE RAILS X2, CALL LIGHT WITHIN REACH. WILL ENDORSED TO KNOT PICKER CLOTH FOR NADIYA.
[2020-05-05 20:00] VITALS: BP 112/67
--- NOTE | 2020-05-05 20:00 | NUR ---
MS RN OPENING NOTE: Received patient laying in bed comfortably. Patient is AOx4. Patient does not complain of pain or discomfort at this time. Patient shows no signs of distress. No SOB. Breathing unlabored and equal. Noted Left FA #20; patent, intact, no redness, or infiltration. HD cath on left femoral noted. Dressing dry and clean. Safety precaution is in place; bed in lowest position, bed is locked, side rails x2 are up, alarm is on, and call light is within reach. Will continue plan of care.
--- NOTE | 2020-05-05 20:09 | NUR ---
MS RN NOTE: Patient complains of back pain. Patient rates pain 10 on a 0-1 numerical scale. Patient describes pain as throbbing and sharp. Administered PRN Dilauded per order.
[2020-05-05 20:16] VITALS: BP 112/67
--- NOTE | 2020-05-05 20:30 | NUR ---
RN NOTES: HD STARTED
[2020-05-05 23:01] VITALS: BP 110/66
--- NOTE | 2020-05-05 23:02 | NUR ---
rn notes/completion of hd: hd completed with 900 output.
--- NOTE | 2020-05-05 23:02 | NUR ---
MS RN NOTE: Patient complains of back pain. Patient rates pain 7 on a 0-10 scale. Patient describes pain as throbbing and sharp. Administered PRN [place] per order.
--- NOTE | 2020-05-05 23:41 | NUR ---
rn nots: assisted matthew keyana in changing bed linen of the pt, pt accidentally? spilled ice water all over the bed. pt yelling, upset. pt just received norco for c/o upper and lower back pain, lower leg pain. pt refusing bed alarm despite providing education, risk vs benefits discussed to the pt,. carbon furnace operator made aware.
[2020-05-06] MEDS: HYDROMORPHONE 1 MG/1 ML DISP.SYRIN IV PRN ×5 (01:57→20:16)
--- NOTE | 2020-05-06 01:57 | NUR ---
MS RN NOTE: Patient complains of pain on his back. Patient rates pain 10 on a 0-10 scale. Patient describes pain as throbbing and sharp. Administered PRN Dilauded per order.
[2020-05-06 06:16] LABS: BASOPHILS # (AUTO) 0.1 /CMM (0.0-0.2); BASOPHILS % (AUTO) 0.9 % (0.0-2.0); EOSINOPHILS % (AUTO) 2.3 % (0.0-6.0); HEMATOCRIT 26 % (39-51); HEMOGLOBIN 8.6 g/dL (13.5-17.5); LYMPHOCYTES # (AUTO) 1.1 /CMM (0.8-4.8); MEAN CORPUSCULAR HGB CONC 33 g/dl (31.0-36.0); MEAN CORPUSCULAR VOLUME 92 fL (80-96); MONOCYTES # (AUTO) 0.4 /CMM (0.1-1.30); MONOCYTES % (AUTO) 4.5 % (2.0-12.0); NEUTROPHILS # (AUTO) 6.5 /CMM (1.8-8.9); NEUTROPHILS % (AUTO) 79.3 % (43.0-81.0); PLATELET COUNT (AUTO) 268 /CMM (150-450); RED BLOOD CELL COUNT(AUTO) 2.83 MIL/uL (4.5-6.0); WHITE BLOOD COUNT (AUTO) 8.2 K/uL (4.3-11.0)
[2020-05-06 06:21] LABS: CALCIUM, SERUM 9.8 mg/dL (8.5-10.1); CREATININE 6.4 mg/dL (0.6-1.3); MAGNESIUM 2.5 mg/dL (1.8-2.4); PHOSPHORUS 6.2 mg/dL (2.5-4.9); POTASSIUM 4.5 mmol/L (3.5-5.1)
--- NOTE | 2020-05-06 06:26 | NUR ---
RN MS NOTE: Patient complains of pain. Patient rates pain 10 on a 0-10 numerical scale. Patient describes pain as throbbing and sharp. Administered PRN Dilauded per order.
--- NOTE | 2020-05-06 06:30 | NUR ---
MS RN CLOSING NOTE: Patient awake laying down in bed. Patient complains of pain. Administered PRN Dilauded. Patient shows no signs of distress. No SOB. Breathing unlabored and equal. Safety precaution is in place; bed in lowest position, bed is locked, side rails x2 are up, alarm is on, and call light is within reach. Will endorse to next shift
--- NOTE | 2020-05-06 07:27 | NUR ---
MS/RN OPENING NOTES RECEIVED PATIENT ON BED AWAKE WATCHING TV. PATIENT IS ALERT AND ORIENTED X4. NO S/S OF ACUTE RESPIRATORY DISTRESS, BREATHING IS EVEN AND UNLABORED. IV ACCESS IS ON LEFT FA, # 20 G INTACT & PATENT, HEP LOCKED. HD CATH PRESENT ON LEFT FEMORAL. SAFETY MEASURES IN PLACED. BED LOCKED, ALARM ON, SIDE RAILS X2, CALL LIGHT WITHIN REACH. WILL CONTINUE TO MONITOR.
[2020-05-06 08:00] VITALS: BP 122/68
[2020-05-06] MEDS: HYDROCODONE/APAP 5/325MG 1 EACH TABLET PO PRN ×4 (08:23→23:15)
--- NOTE | 2020-05-06 08:24 | NUR ---
MS/RN NOTES PATIENT COMPLAINED OF PAIN RATED 7/10 NORCO 5/325MG 1 TAB PO WAS GIVEN. WILL CONTINUE TO MONITOR.
[2020-05-06] MEDS: THIAMINE HCL 100 MG TABLET PO SCH (09:00)
[2020-05-06] MEDS: APIXABAN 5 MG TABLET PO SCH ×2 (09:00→17:00)
[2020-05-06] MEDS: ZINC SULFATE 220 MG CAPSULE PO SCH (09:00)
[2020-05-06] MEDS: DRONABINOL (2.5 MG) 2.5 MG CAPSULE PO SCH (09:00)
[2020-05-06] MEDS: FOLIC ACID 1 MG TABLET PO SCH (09:00)
[2020-05-06] MEDS: VIT B CMPLX 3/FA/VIT C/BIOTIN 1 TAB TABLET PO SCH (09:00)
[2020-05-06] MEDS: ASCORBIC ACID 500 MG TABLET PO SCH (09:00)
--- NOTE | 2020-05-06 09:14 | NUR ---
MS/RN NOTES PATIENT REFUSED THE 0900 AM ORAL MEDICATION EXPLAINED THE RISK AND BENEFITS, PATIENT STILL REFUSING. WILL CONTINUE TO MONITOR.
--- NOTE | 2020-05-06 10:12 | NUR ---
WOUND CARE CONSULT: DIFFICULT ASSESSMENT DUE TO PT ANGRY AND REFUSING, THEN ALLOWING BRIEF ASSESSMENT OF RT THIGH WOUNDS. TWO OPEN AREAS NOTED TO RT THIGH WELL CLOSED INCISION WITH MARTÍN. RECOMMEND SURGICAL FOLLOW UP(VASCULAR). DISCUSSED WITH WARP DYEING TENDER. RN AND WARP DYEING TENDER TO DISCUSS POSSIBLE VASCULAR CONSULT WITH PMD TODAY. RECOMMENDATIONS MADE FOR WOUND CARE AND DISCUSSED WITH NURSING STAFF. MD IN AGREEMENT WITH PLAN OF CARE. PT REFUSED TO TURN FOR FULL SKIN ASSESSMENT OF BACK AND SACRAL AREA. WILL SEE PRN. Addendum: 05/06/20 at 1014 by ARIADNE ARROYO WNDNU Amended: Links added.
--- NOTE | 2020-05-06 14:24 | NUR ---
MS/RN NOTES DR. BESS ORDER NPO POST MIDNIGHT AND GET CONSENT FOR REPLACEMENT OF THE HEMODIALYSIS CATHETER. NOTED AND CARRIED OUT.
[2020-05-06 16:00] VITALS: BP 108/63
--- NOTE | 2020-05-06 18:38 | NUR ---
MS/RN CLOSING NOTES PATIENT IS ON BED. PATIENT IS ALERT AND ORIENTED X4. NO S/S OF ACUTE RESPIRATORY DISTRESS, BREATHING IS EVEN AND UNLABORED. IV ACCESS IS ON LEFT FA, # 20 G INTACT & PATENT, HEP LOCKED. HD CATH PRESENT ON LEFT FEMORAL. SEEN AND EXAMINED BY MD WITH ORDERS MADE CARRIED OUT. CHECKED PATIENT EVERY 2 HOURS. SAFETY MEASURES IN PLACED. BED LOCKED, ALARM ON, SIDE RAILS X2, CALL LIGHT WITHIN REACH. WOUND CARE AND DRESSING CHANGED. PATIENT IS FOR REPLACEMENT OF THE HEMODIALYSIS CATHETER TOMORROW CONSENT WAS SIGN BY THE PATIENT AND ATTACH TO CHART. NPO POST MIDNIGHT. WILL ENDORSED TO CORPORATE REPRESENTATIVE FOR NADIYA.
--- NOTE | 2020-05-06 19:40 | NUR ---
MS RN OPENING NOTES PATIENT RECEIVED RESTING IN BED A/O X 4. STABLE ON RA WITH BREATHING EVEN AND UNLABORED, NO SOB NOTED. NO SIGNS OF ACUTE DISTRESS. NO COMPLAINTS OF PAIN OR DISCOMFORT. IV LOCATED ON L FA #20. L FEMORAL HD CATH NOTED AND IN PLACE. SAFETY PRECAUTIONS IN PLACE WITH BED IN LOWEST POSITION, CALL LIGHT WITHIN REACH, BREAKS ON, SIDE RAILS UP. WILL CONTINUE TO MONITOR THROUGHOUT THE SHIFT.
[2020-05-06 20:00] VITALS: BP 103/62
[2020-05-06 20:36] VITALS: BP 103/62
--- NOTE | 2020-05-06 23:46 | NUR ---
MS RN NOTES PT REFUSED WOUND CARE, WANTS TO BE "LEFT ALONE". WILL CONTINUE TO MONITOR.
[2020-05-07] VITALS (7 sets, daily range): BP systolic 101–138; BP diastolic 69–83
[2020-05-07] MEDS: HYDROMORPHONE 1 MG/1 ML DISP.SYRIN IV PRN ×5 (02:17→20:59)
--- NOTE | 2020-05-07 06:49 | NUR ---
MS RN CLOSING NOTES PATIENT RESTING IN BED A/O X 4. STABLE ON RA WITH BREATHING EVEN AND UNLABORED, NO SOB NOTED. NO SIGNS OF ACUTE DISTRESS. NO COMPLAINTS OF PAIN OR DISCOMFORT. IV LOCATED ON L FA #20. L FEMORAL HD CATH NOTED AND IN PLACE. SAFETY PRECAUTIONS IN PLACE WITH BED IN LOWEST POSITION, CALL LIGHT WITHIN REACH, BREAKS ON, SIDE RAILS UP. ALL NEEDS ATTENDED TO. PATIENT WAS KEPT NPO THROUGHOUT THE NIGHT. WILL ENDORSE TO ONCOMING SHIFT ABOUT NADIYA.
[2020-05-07 07:15] LABS: BASOPHILS # (AUTO) 0.1 /CMM (0.0-0.2); BASOPHILS % (AUTO) 1.5 % (0.0-2.0); EOSINOPHILS % (AUTO) 2.5 % (0.0-6.0); HEMATOCRIT 27 % (39-51); HEMOGLOBIN 8.8 g/dL (13.5-17.5); LYMPHOCYTES # (AUTO) 1.3 /CMM (0.8-4.8); LYMPHOCYTES % (AUTO) 16.8 % (20.0-44.0); MEAN CORPUSCULAR HGB CONC 33 g/dl (31.0-36.0); MEAN CORPUSCULAR VOLUME 93 fL (80-96); MONOCYTES # (AUTO) 0.5 /CMM (0.1-1.30); MONOCYTES % (AUTO) 6.1 % (2.0-12.0); NEUTROPHILS # (AUTO) 5.8 /CMM (1.8-8.9); NEUTROPHILS % (AUTO) 73.1 % (43.0-81.0); PLATELET COUNT (AUTO) 310 /CMM (150-450); RED BLOOD CELL COUNT(AUTO) 2.91 MIL/uL (4.5-6.0)
--- NOTE | 2020-05-07 07:20 | NUR ---
RN OPENING NOTES RECEIVED PATIENT ON BED AWAKE WATCHING TV. PATIENT IS ALERT AND ORIENTED X4. NOT IN ANY FORM OF DISTRESS. NO SOB. DENIED PAIN OR DISCOMFORT AT THIS TIME. IV ACCESS INTACT & PATENT. HD CATH NOTED ON LEFT FEMORAL. SAFETY MEASURES IN PLACED. BED IN LOW/LOCKED, ALARM ON, SIDE RAILS X2, CALL LIGHT WITHIN REACH. WILL CONTINUE TO MONITOR ACCORDINGLY.
[2020-05-07 07:24] LABS: CALCIUM, SERUM 10.2 mg/dL (8.5-10.1); MAGNESIUM 2.5 mg/dL (1.8-2.4); PHOSPHORUS 7.3 mg/dL (2.5-4.9)
[2020-05-07 07:31] LABS: CREATININE 8.5 mg/dL (0.6-1.3)
--- NOTE | 2020-05-07 07:52 | NUR ---
RN NOTES CRITICAL VALUE OF CREATININE 8.5 AND BUN 41 REPORTED TO BRITTNEY COHEN.
[2020-05-07] MEDS: DRONABINOL (2.5 MG) 2.5 MG CAPSULE PO SCH (08:27)
[2020-05-07] MEDS: FOLIC ACID 1 MG TABLET PO SCH (08:27)
[2020-05-07] MEDS: APIXABAN 5 MG TABLET PO SCH ×2 (08:27→16:49)
[2020-05-07] MEDS: ZINC SULFATE 220 MG CAPSULE PO SCH (08:28)
[2020-05-07] MEDS: THIAMINE HCL 100 MG TABLET PO SCH (08:28)
[2020-05-07] MEDS: VIT B CMPLX 3/FA/VIT C/BIOTIN 1 TAB TABLET PO SCH (08:28)
[2020-05-07] MEDS: ASCORBIC ACID 500 MG TABLET PO SCH (08:28)
[2020-05-07] MEDS: HYDROCODONE/APAP 5/325MG 1 EACH TABLET PO PRN ×3 (11:27→23:21)
[2020-05-07] MEDS ORDERED: HEPARIN SODIUM, PORCINE 1,000 UNIT/ML VIAL ONE (17:51)
[2020-05-07] MEDS ORDERED: LIDOCAINE HCL/MPF 1% 30 ML VIAL IJ ONE (17:51)
--- NOTE | 2020-05-07 18:00 | NUR ---
picked up for surgery
[2020-05-07] MEDS ORDERED: FENTANYL PF 100MCG/2ML AMPUL ONE (18:03)
[2020-05-07] MEDS ORDERED: IOHEXOL 240MG/ML 50 ML IV ONE (18:54)
--- NOTE | 2020-05-07 19:19 | NUR ---
patient still in OR. Endorsed to night RN accordingly.
[2020-05-07] MEDS ORDERED: HYDROCODONE/APAP 5/325MG 1 EACH TABLET ONE (19:31)
--- NOTE | 2020-05-07 19:31 | NUR ---
MS RN OPENING NOTES RECEIVED REPORT FROM DAY SHIFT RN. PATIENT CURRENTLY IN OR FOR NEW HD CATH PLACEMENT WITH DR. BESS.
--- NOTE | 2020-05-07 19:41 | NUR ---
MS COOK NOTES PATIENT IN ROOM, TRANSPORTED VIA GURNEY WITH RN. NEW HD CATH PLACED ON RIGHT GROIN, INTACT & PATENT, NO BLEEDING PRESENT. PATIENT DROWSY, EASY TO WAKE UP. PER PEN OR PENCIL ASSEMBLY MACHINE OPERATORPERLA COOK, PATIENT RECEIVED ONE TAB OF NORCO 5/325MG PO BEFORE RETURNING TO UNIT. VITAL SIGNS- BP: 125/78 HR: 79 RR: 16 SPO2: 97 ON RA; BREATHING IS EVEN AND UNLABORED. POST-OP ORDERS IN PLACE; WILL CARRY OUT. SAFETY MEASURES IN PLACE AND PATIENT'S NEEDS MET. BED LOCKED, SIDE RAILS X2, CALL LIGHT WITHIN REACH. WILL CONTINUE TO MONITOR. Addendum: 05/08/20 at 0646 by MARCIN BHATT RN HD CATH ON LEFT GROIN
--- NOTE | 2020-05-07 19:47 | NUR ---
MS RN NOTES PER POST-OP ORDERS, PATIENT TO RECEIVE IVPB ANCEF Q8HRS X TWO DOSES. PER DIRECTOR OF MARKET INTELLIGENCEPERLA, PATIENT RECEIVED FIRST IVPB ANCEF AT 1819 AND FAXED ORDERS TO PHARMACY.
[2020-05-08 01:18] VITALS: BP 127/80
[2020-05-08] MEDS: HYDROMORPHONE 1 MG/1 ML DISP.SYRIN IV PRN ×5 (01:22→22:50)
[2020-05-08] MEDS: ANCEF 1 GM/50 ML D5W IV SCH ×6 (01:41→10:57)
[2020-05-08 03:43] VITALS: BP 120/73
[2020-05-08] MEDS: HYDROCODONE/APAP 5/325MG 1 EACH TABLET PO PRN ×4 (03:45→21:08)
--- NOTE | 2020-05-08 06:04 | NUR ---
MS RN NOTES PATIENT REFUSED WOUND CARE TREATMENT ON RIGHT THIGH AND MORNING LABS AT THIS TIME.
--- NOTE | 2020-05-08 06:43 | NUR ---
MS RN CLOSING NOTES PATIENT SLEEPING, EASY TO AWAKEN. A/OX4. STABLE ON RA. NO S/S OF SOB OR PAIN NOTED. BREATHING IS EVEN AND UNLABORED. IV ON LEFT FA, SIZE 20, INTACT & PATENT, HEP LOCKED. HD CATH ON LEFT FEM REMAINS IN PLACE. SAFETY MEASURES IN PLACE AND PATIENT'S NEEDS MET. BED LOCKED, SIDE RAILS X2, CALL LIGHT WITHIN REACH. WILL ENDORSE TO DAY SHIFT NURSE PLAN OF CARE.
[2020-05-08 08:17] VITALS: BP 115/69
[2020-05-08] MEDS: VIT B CMPLX 3/FA/VIT C/BIOTIN 1 TAB TABLET PO SCH (08:21)
[2020-05-08] MEDS: DRONABINOL (2.5 MG) 2.5 MG CAPSULE PO SCH (08:21)
[2020-05-08] MEDS: FOLIC ACID 1 MG TABLET PO SCH (08:21)
[2020-05-08] MEDS: APIXABAN 5 MG TABLET PO SCH ×2 (08:21→17:00)
[2020-05-08] MEDS: THIAMINE HCL 100 MG TABLET PO SCH (08:21)
[2020-05-08] MEDS: ZINC SULFATE 220 MG CAPSULE PO SCH (08:23)
[2020-05-08] MEDS: ASCORBIC ACID 500 MG TABLET PO SCH (08:23)
--- NOTE | 2020-05-08 08:23 | NUR ---
MS RN NOTES HELD AM [facility] HD NURSE CALLED AND SAID PATIENT WILL HAVE DIALYSIS [place] TODAY.
--- NOTE | 2020-05-08 10:20 | NUR ---
MS RN NOTE CALLED PHARMACY, SPOKE [place], AWAITING FOR [facility].
[2020-05-08 12:04] LABS: BASOPHILS # (AUTO) 0.1 /CMM (0.0-0.2); BASOPHILS % (AUTO) 1.4 % (0.0-2.0); EOSINOPHILS % (AUTO) 2.9 % (0.0-6.0); HEMATOCRIT 29 % (39-51); HEMOGLOBIN 9.4 g/dL (13.5-17.5); LYMPHOCYTES # (AUTO) 1.2 /CMM (0.8-4.8); LYMPHOCYTES % (AUTO) 15.1 % (20.0-44.0); MEAN CORPUSCULAR HGB CONC 32 g/dl (31.0-36.0); MEAN CORPUSCULAR VOLUME 92 fL (80-96); MONOCYTES # (AUTO) 0.4 /CMM (0.1-1.30); MONOCYTES % (AUTO) 4.7 % (2.0-12.0); NEUTROPHILS % (AUTO) 75.9 % (43.0-81.0); PLATELET COUNT (AUTO) 356 /CMM (150-450); RED BLOOD CELL COUNT(AUTO) 3.17 MIL/uL (4.5-6.0); WHITE BLOOD COUNT (AUTO) 7.9 K/uL (4.3-11.0)
[2020-05-08 12:11] LABS: MAGNESIUM 2.7 mg/dL (1.8-2.4); PHOSPHORUS 7.5 mg/dL (2.5-4.9); POTASSIUM 5.7 mmol/L (3.5-5.1)
[2020-05-08 12:16] LABS: CREATININE 9.8 mg/dL (0.6-1.3)
--- NOTE | 2020-05-08 15:17 | NUR ---
MS RN NOTES PATIENT CURRENTLY RECEIVING HD.
[2020-05-08 16:06] VITALS: BP 125/70
--- NOTE | 2020-05-08 17:56 | NUR ---
MS RN NOTES PATIENT STILL RECEIVING HD. HELD PM MEDS.
--- NOTE | 2020-05-08 18:30 | NUR ---
MS RN NOTES PATIENT FOR DISCHARGE. DISCHARGE INSTRUCTIONS AND PACKET GIVEN TO PATIENT. ALERT AND ORIENTED X4. PATIENT ABLE TO TRANSFER SELF FROM HIS ELECTRICAL WHEELCHAIR AND BED. [facility]SP[facility] BUT PATIENT REFUSED TRANSPORTATION BECAUSE HE WANTS HIS WHEELCHAIR TO BE TAKEN AT THE SAME TIME WITH HIM DESPITE OFFERING A SECOND TRIP TO SEND HIS W/C. PATIENT REFUSED AMBULANCE TRANSPORTATION AND STATED HE WILL SET UP HIS OWN TRANSPORTATION. CM MADE AWARE. PATIENT RECEIVED HD ZARINA WELL WITH 1500ML OUTPUT. ABLE TO VERBALIZE NEEDS. CALL LIGHT WITHIN REACH. ENDORSED TO ONCOMING SHIFT.
--- NOTE | 2020-05-08 19:00 | NUR ---
RN MS OPENING NOTES RECEIVED PATIENT UP IN SCOOTER,PENDING FOR DISCHARGE AWAITNG FOR TRANSPORTATION ARRANGEMENT. ALERT AND ORIENTED X4, RESPIRATIONS EVEN AND UNLABORED WITH EQUAL RISE AND FALL OF CHEST, AT THIS TIME DENIES PAIN , ORIENTED TO STAFF AND CALL LIGHT AND KEPT WITHIN REACH, SAFETY PRECAUTIONS IN PLACE, LOW BED AND LOCKED, ALL NEEDS ATTENDED AT THIS TIME, WILL CONTINUE TO MONITOR. FLUIDS OFFERED.
--- NOTE | 2020-05-08 19:15 | NUR ---
MS RN NOTES CALLED CM AND EXPLAINED PATIENT'S REFUSAL FOR AMBULANCE TRANSPORT. INFORMED CM THAT PATIENT HAD TRIED CALLING [facility] BUT THEN THE PHONE IS ON HOLD AND HANGS UP. CALLED NUMEROUS TIMES WELL BUT SAME THING HAPPENED. DUE TO NUMEROUS ATTEMPTS BY PATIENT, HE DOES NOT WANT TO CALL ANYMORE AND HE YELLED AT STAFF TO CALL FOR HIM. CM MADE AWARE. PER CM WILL ATTEMPT TO FIND TRANSPORTATION. IF UNABLE TO FIND TRANSPORTATION, CONCERN WILL BE ADDRESSED IN AM. ENDORSED ACCORDINGLY.
[2020-05-08] MEDS ORDERED: ACETAMINOPHEN 325 MG TABLET ONE (19:41)
[2020-05-08] MEDS: ACETAMINOPHEN 325 MG TABLET PO PRN (19:43)
--- NOTE | 2020-05-08 19:45 | NUR ---
rn ms notes patient complained of pain to back 10/10 requested for tylenol prn tylenol given as ordered will continue to monitor patient is awaiting for transportation to be discharged awaiting telephonic case manager call back.
--- NOTE | 2020-05-08 20:00 | NUR ---
rn ms notes patient refused vital signs appears stable comfortable.
--- NOTE | 2020-05-08 21:08 | NUR ---
RN MS NOTES PATIENT COMPLAINED OF PAIN TO GENERALIZED AREAS STATES 10/10 REQUESTED FOR NORCO REFUSED TO HAVE V.S TAKEN DESPITE EDUCATION. YELLING I WANT MY PAIN MEDICATION. NORCO PRN GIVEN FOR PAIN WILL CONTINUE TO MONITOR FOR EFFECTIVENESS.
--- NOTE | 2020-05-08 22:00 | NUR ---
RN MS NOTES IV SITE INSERTED TO LEFT FA #[id number]. PATIENT WILL STAY, UNABLE TO ARRANGE TRANSPORTATION CALLED [email or web address] PER PATIENT REQUEST NO ANSWER. WAS AWAITING FOR FOR CASE MANAGEMENT TO CALL BACK, NO CALL BACK RECEIVED, PATIENT WILL STAY IN HOSPITAL.
--- NOTE | 2020-05-08 22:50 | NUR ---
RN MS NOTES PATIENT COMPLAINED OF PAIN 10/10 TO BACK REQUESTED FOR DILAUDID PRN. AGREED TO HAVE BLOOD PRESSURE TAKEN 121/64,94,18. DILAUDID PRN GIVEN ORDERED WITNESSED AND WASTED WITH ANOTHER RN.
[2020-05-09] MEDS: HYDROCODONE/APAP 5/325MG 1 EACH TABLET PO PRN ×2 (01:21→09:52)
--- NOTE | 2020-05-09 01:23 | NUR ---
RN MS NOTES PATIENT COMPLAINED OF PAIN TO GENERALIZED AREAS STATES 10/10 REQUESTED FOR NORCO YELLING I WANT MY PAIN MEDICATION. NORCO PRN GIVEN FOR PAIN WILL CONTINUE TO MONITOR FOR EFFECTIVENESS.
--- NOTE | 2020-05-09 06:42 | NUR ---
RN MS CLOSING NOTES PATIENT IN BED SLEEPING ALERT AND ORIENTED X4, RESPIRATIONS EVEN AND UNLABORED WITH EQUAL RISE AND FALL OF CHEST, AT THIS TIME DENIES PAIN , CALL LIGHT KEPT WITHIN REACH, SAFETY PRECAUTIONS IN PLACE, LOW BED AND LOCKED, ALL NEEDS ATTENDED AT THIS TIME, WILL CONTINUE TO MONITOR AND ENDORSE TO NEXT SHIFT, AT THIS TIME, REMAINS COMFORTABLE.
--- NOTE | 2020-05-09 07:10 | NUR ---
MS RN NOTES RECEIVED PATIENT IN BED ALERT AND AWAKE ORIENTED X4. PATIENT YELLING IN FOUL LANGUAGE AND OBSERVED THROWING TRASH ONTO THE FLOOR. OBSERVED PATIENT NON-COMPLIANT WITH CARE DESPITE OF EDUCATION AND EXPLANATIONS GIVEN. NO SOB. LEFT FA # 24 SL INTACT AND PATENT. ABLE TO VERBALIZE NEEDS. PATIENT ABLE TO TRANSFER SELF FROM BED TO WHEELCHAIR. CALL LIGHT WITHIN REACH.
[2020-05-09 08:00] VITALS: BP 106/68
[2020-05-09] MEDS: HYDROMORPHONE 1 MG/1 ML DISP.SYRIN IV PRN (08:16)
[2020-05-09] MEDS: ASCORBIC ACID 500 MG TABLET PO SCH (09:00)
[2020-05-09] MEDS: THIAMINE HCL 100 MG TABLET PO SCH (09:00)
[2020-05-09] MEDS: VIT B CMPLX 3/FA/VIT C/BIOTIN 1 TAB TABLET PO SCH (09:00)
[2020-05-09] MEDS: FOLIC ACID 1 MG TABLET PO SCH (09:00)
[2020-05-09] MEDS: DRONABINOL (2.5 MG) 2.5 MG CAPSULE PO SCH (09:00)
[2020-05-09] MEDS: APIXABAN 5 MG TABLET PO SCH (09:00)
[2020-05-09] MEDS: ZINC SULFATE 220 MG CAPSULE PO SCH (09:00)
--- NOTE | 2020-05-09 09:54 | NUR ---
MS RN NOTES HELD AM MEDS, PATIENT WILL START HD [place]
[2020-05-09] MEDS: ACETAMINOPHEN 325 MG TABLET PO PRN (11:53)
--- NOTE | 2020-05-09 12:00 | NUR ---
MS RN NOTES DISCHARGE INSTRUCTIONS AND PACKET GIVEN TO PATIENT. PATIENT REFUSED TREATMENT AND REFUSED PICTURES TO BE TAKEN. PATIENT TRANSFERRED SELF FROM BED TO WHEELCHAIR. IV ACCESS REMOVED WITH CATHETER TIP INTACT WITH GAUZE DRESSING APPLIED. LEFT FEMORAL HD CATH INTACT WITH DRESSING IN PLACE. PATIENT HAS SCHEDULED DIALYSIS AT [facility] TODAY AND DOES NOT WANT DIALYSIS DONE. PATIENT LEFT IN STABLE CONDITION WITH ALL PERSONAL BELONGINGS BUT REFUSED TO SIGN BELONGING LIST. PATIENT LEFT DISCHARGE PACKET FOLDER AND DOES NOT WANT TO TAKE IT.
[2020-05-09] MEDS ORDERED: HYDROMORPHONE 1 MG/1 ML DISP.SYRIN IV PRN (13:30)
== END 2020-05-09 12:00 | disposition home or self-care (01) | DRG 466 ==
LOC: ER 16:03 → MED 17:00
PROVIDERS: ADMIT Nurse Practitioner Acute Care; ATTEND Internal Medicine
DX: T82.41XA Breakdown (mechanical) of vascular dialysis catheter, initial encounter (principal); I12.0 Hypertensive chronic kidney disease with stage 5 chronic kidney disease or end stage renal disease; D68.59 Other primary thrombophilia; K83.1 Obstruction of bile duct; B19.10 Unspecified viral hepatitis B without hepatic coma; E83.39 Other disorders of phosphorus metabolism; E83.41 Hypermagnesemia; M41.9 Scoliosis, unspecified; N18.6 End stage renal disease; E83.52 Hypercalcemia; E87.70 Fluid overload, unspecified; Z99.2 Dependence on renal dialysis; Y92.009 Unspecified place in unspecified non-institutional (private) residence as the place of occurrence of the external cause; I25.10 Atherosclerotic heart disease of native coronary artery without angina pectoris; Y71.2 Prosthetic and other implants, materials and accessory cardiovascular devices associated with adverse incidents; D63.8 Anemia in other chronic diseases classified elsewhere; Z88.0 Allergy status to penicillin; Z79.51 Long term (current) use of inhaled steroids; Z79.899 Other long term (current) drug therapy; D72.829 Elevated white blood cell count, unspecified; K59.09 Other constipation; Z79.01 Long term (current) use of anticoagulants; Z95.828 Presence of other vascular implants and grafts; E16.2 Hypoglycemia, unspecified; N25.0 Renal osteodystrophy; G89.4 Chronic pain syndrome; I70.0 Atherosclerosis of aorta
CPT/HCPCS: 36415; 71045-TC; 80048-TC; 80061-TC; 80076-TC; 82728-TC; 83540-TC; 83735-TC; 84100-TC; 85025-TC; 85610-TC; 85730-TC; 86704; 86706; 86850-TC; 87070-TC; 87081-TC; 87186-TC; 87340; 90935-TC; 97530-TC; A6403; A6407; C1750; C1769; G0378; J0690; J1170; J1644; J2704; J2997; J3010; J3490; J7050; J7060; Q0167; Q9966